=== PATIENT | female | born 1965 | race Two or more races ===

== ENCOUNTER 2023-05-08 11:37 | Inpatient (IN) | payer OTHER ==
[~2023-05-08] VITALS: Ht 152.4 cm; Wt 68.0 kg
[2023-05-08] MEDS ORDERED: LASIX20 MG (12:39)
[2023-05-08] MEDS ORDERED: LIPITOR40 M1 PO (12:39)
[2023-05-08] MEDS ORDERED: DESVENLAFAXINE50 MG (12:39)
[2023-05-08] MEDS ORDERED: QUETIAPINE FUM400 M1 (12:39)
[2023-05-08 14:11] LABS: HEMATOCRIT 37.1 % (36.0-45.00); HEMOGLOBIN 12.7 g/dL (12.0-15.00); MEAN CELL VOLUME 87.4 fL (80.00-100.00); MEAN CORPUSCULAR HEMOGLOBIN 29.9 pg (27.00-32.0); MEAN CORPUSCULAR HGB CONC 34.2 g/dl (32.0-36.0); RED BLOOD COUNT 4.25 M/uL (4.00-6.00); RED CELL DISTRIBUTION WIDTH 16.6 % (11.5-14.5)
[2023-05-08 14:23] LABS: PLATELET COUNT 82 K/uL (150-450)
[2023-05-08 14:26] LABS: BILIRUBIN TOTAL 5.03 mg/dL (0.3-1.2); BILIRUBIN,CONJUGATED 3.29 mg/dL (0.0-0.2); BILIRUBIN,UNCONJUGATED 1.74 mg/dL (0.0-0.6); CALCIUM 8.5 mg/dL (8.5-10.1); CREATININE SERUM 0.78 mg/dL (0.55-1.02); GFR 75.33
[2023-05-08 14:38] LABS: INR 1.73
[2023-05-08 14:58] LABS: POTASSIUM 2.58 mEq/L (3.5-5.1)
[2023-05-08 15:07] LABS: PROTHROMBIN TIME 17.4 SECONDS (9.0-11.5)
[2023-05-08 18:10] LABS: URINE APPEARANCE Cloudy; URINE BILIRRUBIN Moderate (NEGATIVE); URINE BLOOD Small; URINE COLOR Dark Yellow; URINE GLUCOSE Negative (NEGATIVE); URINE LEUKOCYTE Moderate; URINE NITRATE Positive
[2023-05-08 18:14] LABS: URINE EPITHELIAL CELLS 8.9 uL (0.0-38.8); URINE RBC 33.5 uL (0.0-20.8)
[2023-05-08 18:44] LABS: URINE BACTERIA > 9821.5 uL (0.0-1933); URINE PROTEIN 100 (NEGATIVE)
[2023-05-08 20:17] LABS: HEMATOCRIT 32.2 % (36.0-45.00); HEMOGLOBIN 11.4 g/dL (12.0-15.00); MEAN CELL VOLUME 85.8 fL (80.00-100.00); MEAN CORPUSCULAR HEMOGLOBIN 30.4 pg (27.00-32.0); MEAN CORPUSCULAR HGB CONC 35.5 g/dl (32.0-36.0); RED BLOOD COUNT 3.75 M/uL (4.00-6.00); RED CELL DISTRIBUTION WIDTH 16.3 % (11.5-14.5)
[2023-05-08 20:21] LABS: PLATELET COUNT 69 K/uL (150-450)
[2023-05-08 20:42] LABS: D DIMER 7.66 MG/L
[2023-05-09 08:04] LABS: HEMOGLOBIN 12.2 g/dL (12.0-15.00); MEAN CELL VOLUME 86.7 fL (80.00-100.00); MEAN CORPUSCULAR HEMOGLOBIN 30.2 pg (27.00-32.0); MEAN CORPUSCULAR HGB CONC 34.8 g/dl (32.0-36.0); RED BLOOD COUNT 4.04 M/uL (4.00-6.00); RED CELL DISTRIBUTION WIDTH 16.6 % (11.5-14.5)
[2023-05-09 08:36] LABS: ERYTHROCYTE SEDIMENTATION RATE 31 mm/hr
[2023-05-09 08:51] LABS: ALBUMIN 2.3 gm/dL (3.4-5.0); BILIRUBIN TOTAL 4.62 mg/dL (0.3-1.2); CALCIUM 8.6 mg/dL (8.5-10.1); CREATININE SERUM 0.75 mg/dL (0.55-1.02); GFR 78.82; GLOBULINA 4.2 G/DL (2.4-3.5); MAGNESIUM 1.8 mg/dL (1.8-2.4); PHOSPHOROUS 2.1 mg/dL (2.5-4.9); TOTAL PROTEIN 6.5 gm/dL (6.4-8.2)
[2023-05-09 09:17] LABS: PLATELET COUNT 66 K/uL (150-450)
[2023-05-09 09:25] LABS: C-REACTIVE PROTEIN 6.17 MG/DL (0.00-0.29)
[2023-05-09 09:27] LABS: POTASSIUM 2.8 mEq/L (3.5-5.1)
[2023-05-09 09:56] LABS: ABG PO2 78.4 mmHg (80-100); ABG pCO2 35.6 mmHg (35-45); BICARBONATE 25.3 mmol/l (23-25); SaO2 96.4 %; Tco2 26.4 mmol/l; allen test SATISFACTORY; o2 21 %; puncture site RADIAL RIGHT
[2023-05-09 19:47] LABS: TP PERITONEAL FLUID 0.7 g/dl
[2023-05-09 19:53] LABS: ALBUMIN 0.4 gm/dL (3.4-5.0)
[2023-05-10 07:30] LABS: ALBUMIN 2.2 gm/dL (3.4-5.0); CALCIUM 8.7 mg/dL (8.5-10.1); CREATININE SERUM 0.89 mg/dL (0.55-1.02); GFR 64.7; GLOBULINA 4.3 G/DL (2.4-3.5); TOTAL PROTEIN 6.5 gm/dL (6.4-8.2)
[2023-05-10 08:06] LABS: POTASSIUM 2.69 mEq/L (3.5-5.1)
[2023-05-10 16:04] LABS: FERRITIN 1254.3 NG/ML (8-252)
[2023-05-11 06:42] LABS: HEMATOCRIT 34.6 % (36.0-45.00); HEMOGLOBIN 12.1 g/dL (12.0-15.00); MEAN CELL VOLUME 85.1 fL (80.00-100.00); MEAN CORPUSCULAR HEMOGLOBIN 29.8 pg (27.00-32.0); RED BLOOD COUNT 4.07 M/uL (4.00-6.00); RED CELL DISTRIBUTION WIDTH 16.2 % (11.5-14.5)
[2023-05-11 08:09] LABS: PLATELET COUNT 59 K/uL (150-450)
[2023-05-12 07:05] LABS: URINE APPEARANCE Cloudy; URINE BILIRRUBIN Moderate (NEGATIVE); URINE BLOOD Large; URINE COLOR Dark Yellow; URINE GLUCOSE Negative (NEGATIVE); URINE LEUKOCYTE Small; URINE NITRATE Positive
[2023-05-12 07:14] LABS: URINE EPITHELIAL CELLS 40.8 uL (0.0-38.8); URINE RBC 613.5 uL (0.0-20.8); URINE WBC 187.9 uL (0.0-23.2)
[2023-05-12 08:16] LABS: URINE PROTEIN 100 (NEGATIVE)
[2023-05-12 08:17] LABS: URINE CRYSTALS FEW /HPF
[2023-05-12 08:18] LABS: URINE MUCUS MODERATE
[2023-05-12 12:14] LABS: ALBUMIN 2.5 gm/dL (3.4-5.0); BILIRUBIN TOTAL 4.26 mg/dL (0.3-1.2); CALCIUM 8.7 mg/dL (8.5-10.1); CREATININE SERUM 0.87 mg/dL (0.55-1.02); GFR 66.41; GLOBULINA 3.9 G/DL (2.4-3.5); TOTAL PROTEIN 6.4 gm/dL (6.4-8.2)
[2023-05-12 12:59] LABS: POTASSIUM 2.48 mEq/L (3.5-5.1)
[2023-05-13 09:11] LABS: CA 15-3 62.6 U/mL (0.0-25.0)
[2023-05-13 09:41] LABS: ALBUMIN 2.4 gm/dL (3.4-5.0); BILIRUBIN TOTAL 3.98 mg/dL (0.3-1.2); CALCIUM 8.5 mg/dL (8.5-10.1); CREATININE SERUM 0.66 mg/dL (0.55-1.02); GFR 91.35; GLOBULINA 4.1 G/DL (2.4-3.5); TOTAL PROTEIN 6.5 gm/dL (6.4-8.2)
[2023-05-13 09:57] LABS: POTASSIUM 2.3 mEq/L (3.5-5.1)
[2023-05-13 18:46] LABS: ABG PH 7.578 (7.35-7.45); ABG PO2 76.1 mmHg (80-100); ABG pCO2 27.2 mmHg (35-45); BASE EXCESS 4.1 mmol/l; BICARBONATE 24.8 mmol/l (23-25); SaO2 97.2 %; Tco2 25.7 mmol/l
[2023-05-13 18:50] LABS: allen test SATISFACTORY; o2 21 %; puncture site RADIAL LEFT
[2023-05-14 08:00] LABS: HEMATOCRIT 39.7 % (36.0-45.00); MEAN CELL VOLUME 87.2 fL (80.00-100.00); MEAN CORPUSCULAR HGB CONC 33.5 g/dl (32.0-36.0); RED BLOOD COUNT 4.56 M/uL (4.00-6.00); RED CELL DISTRIBUTION WIDTH 16.3 % (11.5-14.5)
[2023-05-14 08:03] LABS: PLATELET COUNT 54 K/uL (150-450)
[2023-05-14 08:04] LABS: HEMOGLOBIN 13.3 g/dL (12.0-15.00); MEAN CORPUSCULAR HEMOGLOBIN 29.1 pg (27.00-32.0)
[2023-05-14 08:42] LABS: ALBUMIN 3.2 gm/dL (3.4-5.0); BILIRUBIN TOTAL 5.37 mg/dL (0.3-1.2); BILIRUBIN,CONJUGATED 2.88 mg/dL (0.0-0.2); BILIRUBIN,UNCONJUGATED 2.49 mg/dL (0.0-0.6); CALCIUM 9.3 mg/dL (8.5-10.1); CREATININE SERUM 0.61 mg/dL (0.55-1.02); GFR 100.05; MAGNESIUM 1.8 mg/dL (1.8-2.4); PHOSPHOROUS 2.4 mg/dL (2.5-4.9); TOTAL PROTEIN 8.5 gm/dL (6.4-8.2)
[2023-05-14 09:32] LABS: C-REACTIVE PROTEIN 5.92 MG/DL (0.00-0.29)
[2023-05-14 09:41] LABS: POTASSIUM 2.8 mEq/L (3.5-5.1)
[2023-05-14 10:34] LABS: ERYTHROCYTE SEDIMENTATION RATE 67 mm/hr
[2023-05-15 07:22] LABS: HEMATOCRIT 29.1 % (36.0-45.00); HEMOGLOBIN 10.3 g/dL (12.0-15.00); MEAN CELL VOLUME 85.2 fL (80.00-100.00); MEAN CORPUSCULAR HEMOGLOBIN 30.1 pg (27.00-32.0); MEAN CORPUSCULAR HGB CONC 35.4 g/dl (32.0-36.0); RED BLOOD COUNT 3.41 M/uL (4.00-6.00); RED CELL DISTRIBUTION WIDTH 16.2 % (11.5-14.5)
[2023-05-15 07:57] LABS: CALCIUM 8.4 mg/dL (8.5-10.1); CREATININE SERUM 0.38 mg/dL (0.55-1.02); GFR 172.74; MAGNESIUM 2.1 mg/dL (1.8-2.4); PHOSPHOROUS 2.4 mg/dL (2.5-4.9); POTASSIUM 3.82 mEq/L (3.5-5.1)
[2023-05-15 09:00] LABS: PLATELET COUNT 39 K/uL (150-450)
[2023-05-16 08:17] LABS: HEMATOCRIT 31.1 % (36.0-45.00); HEMOGLOBIN 10.9 g/dL (12.0-15.00); MEAN CELL VOLUME 85.9 fL (80.00-100.00); MEAN CORPUSCULAR HEMOGLOBIN 30.1 pg (27.00-32.0); RED BLOOD COUNT 3.61 M/uL (4.00-6.00); RED CELL DISTRIBUTION WIDTH 16.5 % (11.5-14.5)
[2023-05-16 08:29] LABS: INR 1.33; PROTHROMBIN TIME 13.7 SECONDS (9.0-11.5)
[2023-05-16 08:47] LABS: ALBUMIN 2.2 gm/dL (3.4-5.0); BILIRUBIN,CONJUGATED 1.95 mg/dL (0.0-0.2); BILIRUBIN,UNCONJUGATED 1.05 mg/dL (0.0-0.6); CALCIUM 8.7 mg/dL (8.5-10.1); CREATININE SERUM 0.52 mg/dL (0.55-1.02); GFR 120.28; PHOSPHOROUS 2.9 mg/dL (2.5-4.9); POTASSIUM 3.76 mEq/L (3.5-5.1); TOTAL PROTEIN 5.9 gm/dL (6.4-8.2)
[2023-05-16 09:33] LABS: MANUAL PLATELET COUNT 48; PLATELET COUNT 43 K/uL (150-450)
[2023-05-16] MEDS ORDERED: B Complex PO (13:46)
[2023-05-16] MEDS ORDERED: WARFARIN SODIUM4 MG PO (13:46)
[2023-05-16] MEDS ORDERED: LACTULOSE10 GM/152 PO (13:46)
[2023-05-16] MEDS ORDERED: THIAMINE HCL100 MG PO (13:46)
[2023-05-16] MEDS ORDERED: LIPITOR40 M1 PO (13:46)
[2023-05-16] MEDS ORDERED: QUETIAPINE FUMA25 MG PO (13:46)
[2023-05-16] MEDS ORDERED: APETIGEN P12.5 MG/15 PO (13:46)
[2023-05-16] MEDS ORDERED: Neurin-Sl Tablet Sl SL (13:46)
[2023-05-16] MEDS ORDERED: PROTEINEX-18 LI30 ML PO (13:47)
== END 2023-05-16 18:39 | disposition home health service (06) | DRG 689 ==
LOC: ER 11:37 → MEDI 20:42
PROVIDERS: General Practice; Internal Medicine; Internal Medicine Geriatric Medicine; Internal Medicine Hematology & Oncology; Internal Medicine Infectious Disease; Internal Medicine Nephrology; Radiology Vascular & Interventional Radiology; ADMIT Internal Medicine; ATTEND Internal Medicine
PROC: BW21ZZZ Computerized Tomography (CT Scan) of Abdomen and Pelvis (ICD-10-PCS; 2023-05-08)
PROC: 0W9G3ZX Drainage of Peritoneal Cavity, Percutaneous Approach, Diagnostic (ICD-10-PCS; principal; 2023-05-09)
PROC: B24BZZZ Ultrasonography of Heart with Aorta (ICD-10-PCS; 2023-05-11)
PROC: 02HV33Z Insertion of Infusion Device into Superior Vena Cava, Percutaneous Approach (ICD-10-PCS; 2023-05-14)
DX: N39.0 Urinary tract infection, site not specified (principal); A41.9 Sepsis, unspecified organism; N17.9 Acute kidney failure, unspecified; R18.8 Other ascites; E87.6 Hypokalemia; K74.69 Other cirrhosis of liver; E86.0 Dehydration; K76.82 Hepatic encephalopathy; D63.8 Anemia in other chronic diseases classified elsewhere; K80.20 Calculus of gallbladder without cholecystitis without obstruction; G30.9 Alzheimer's disease, unspecified; F02.80 Dementia in other diseases classified elsewhere, unspecified severity, without behavioral disturbance, psychotic disturbance, mood disturbance, and anxiety; D69.6 Thrombocytopenia, unspecified; I10 Essential (primary) hypertension; B96.20 Unspecified Escherichia coli [E. coli] as the cause of diseases classified elsewhere; J44.9 Chronic obstructive pulmonary disease, unspecified